=== PATIENT | male | born 1950 | race Two or more races ===

== ENCOUNTER 2016-10-25 19:22 | Emergency (ER) | payer MEDICAID, OTHER ==
[~2016-10-25] VITALS: Ht 167.6 cm; Wt 91.2 kg
[~2016-10-25 19:22] MED LIST: ADVAIR HFA 115-12 GM INH; BACTRIM DS TAB1 EAC1 ORAL; BENAZEPRIL HCL20 MG ORAL; BETAMETHASONE D15 GM TP; CIPROFLOXACIN500 M2 ORAL; CITALOPRAM HBR20 M1 ORAL; COREG3.125 MG ORAL; DITROPAN10 MG ORAL; FLOMAX0.4 MG ORAL; GABAPENTIN300 MG ORAL; OMEPRAZOLE20 M3 ORAL; PROMETHAZINE12.5 M1 ORAL; PROSCAR5 MG ORAL; TENORMIN25 MG ORAL; UNOBMED
[2016-10-25 19:40] VITALS: BP 139/72
[2016-10-25] MEDS ORDERED: Tylenol #3 tab (300mg/30mg) ORAL ONE (20:15)
[2016-10-25] MEDS ORDERED: Meclizine 25mg tab ORAL ONE (20:15)
[2016-10-25] MEDS ORDERED: KENALOG 0.5% CR15 GM APPLIC (20:44)
[2016-10-25] MEDS ORDERED: CORTISPORIN EAR10 ML LEFT EAR (20:44)
[2016-10-25] MEDS ORDERED: VERTICALM25 MG ORAL (20:44)
[2016-10-25] MEDS ORDERED: ACETAMINOPHEN-1 EAC1 ORAL (20:44)
[2016-10-25 21:00] VITALS: BP 139/72
--- NOTE | 2016-10-25 21:31 | Emergency Room Report ---
History of Present Illness General Chief Complaint: Dizziness Source: Patient Present Illness HPI The patient is a 66-year-old male presenting for dizziness and left ear pain after having a ear lavage one week prior. Pain is described as a 7/10 dull ache to the left ear does not radiate. Worse with touch. He denies any discharge or changes in hearing. He denies any fever or chills. He states that he has been feeling dizzy and twisted his ankle yesterday due to to imbalance. This pain is described as a 9/10 dull ache and does not radiate. Worse with walking. He denies any other symptoms including nausea, vomiting, headache, blurred vision, chest pain, shortness of breath, palpitations Allergies: Coded Allergies: No Known Allergies (Unverified , 06/24/13) Patient History Past Medical History: see triage record Pertinent Family History: none Reviewed Nursing Documentation: PMH: Agreed, PSxH: Agreed Nursing Documentation-PMH Past Medical History: No History, Except For Hx Cardiac Problems: Yes - [place] Hx Hypertension: Yes Hx Cancer: No Hx Neurological Problems: No Review of Systems All Other Systems: negative except mentioned in HPI Physical Exam Vital Signs Date Time Temp Pulse Resp B/P Pulse Ox O2 Delivery O2 Flow Rate FiO2 10/25/16 19:34 98.4 86 16 120/74 99 Room Air Sp02 EP Interpretation: reviewed, normal General Appearance: no apparent distress, alert, GCS 15, non-toxic Head: normocephalic, atraumatic Eyes: bilateral eye EOMI, bilateral eye PERRL, bilateral eye normal inspection ENT: normal pharynx, normal voice, uvula midline, other - L EAC tender and erythematous. TM intact. No bulging. Neck: full range of motion, supple/symm/no masses Respiratory: chest non-tender, lungs clear, normal breath sounds, speaking full sentences Cardiovascular #1: regular rate, rhythm, no edema Musculoskeletal: back normal, gait/station normal, normal range of motion, tender - TTP over the L lateral ankle Neurologic: alert, oriented x3, responsive, motor strength/tone normal, sensory intact, speech normal Psychiatric: judgement/insight normal, memory normal, mood/affect normal, no suicidal/homicidal ideation Skin: rash - scaly, shiny rash with erythematous base over the elbows and knees Procedures Splinting Splinting : Consent: Verbal Location: L ankle Pre-Made Type: SAÚL wrap Pre-Proc Neuro Vasc Exam: normal Post-Proc Neuro Vasc Exam: normal Patient Tolerated: Well Complications: None Medical Decision Making PA Attestation Dr. Garcia is my supervising physician. Patient management was discussed with my supervising physician Diagnostic Impression: Primary Impression: Otitis externa of left ear Qualified Codes: H60.502 - Unspecified acute noninfective otitis externa, left ear Additional Impressions: Left ankle sprain Qualified Codes: S93.402A - Sprain of unspecified ligament of left ankle, initial encounter Dizziness Psoriasis ER Course The patient is a 66-year-old male presenting with left ear pain and left ankle pain Differential diagnosis include but not limited to otitis externa, otitis media, Mnire disease, labyrinthitis, among others Ddx considered include but not limited to sprain/strain, fracture, contusion PE: vitals WNL HEENT: Left ear is tender to touch with pressure over tragus. External auditory canal is erythematous and edematous with some white discharge noted. Tympanic membrane is intact. RRR There is tenderness to palpation over the left lateral ankle. No obvious deformity. Full active range of motion. Skin: Warm and dry. There are psoriatic plaques noted on the elbows and knees. X-ray of the left ankle is unremarkable Saúl wrap is placed The patient is given a prescription for meclizine, Cortisporin, Tylenol #3, and triamcinolone. He is to follow up with primary doctor. ER precautions given Other X-Ray Diagnostic Results Other X-Ray Diagnostic Results : X-Ray ordered: L ankle # of Views/Limited Vs Complete: 3 View Indication: Pain EP Interpretation: Yes Interpretation: no dislocation, no soft tissue swelling, no fractures Impression: No acute disease Interpreting ER Provider: Dr. garcia PA Scribe Text I am acting as scribe for my supervising physician. My supervising physician's interpretation of the L ankle xrays are there are no fractures, dislocations or soft tissue swelling. Last Vital Signs Date Time Temp Pulse Resp B/P Pulse Ox O2 Delivery O2 Flow Rate FiO2 10/25/16 19:34 98.4 86 16 120/74 99 Room Air Status: improved Disposition: HOME, SELF-CARE Condition: Improved Scripts Triamcinolone Acet (Triamcinolone Acetonide) 15 Gm Cream..g. 15 GM APPLIC TID, #15 GM Prov: ABRAHAM COLEAYanelis 10/25/16 Neomycin/Polymyxin B Sulf/Hc* (CORTISPORIN EAR SOLUTION*) 10 Ml Solution 4 DROP LEFT EAR QID, #10 ML 0 Refills Prov: ABRAHAM COLE.A. 10/25/16 Meclizine Hcl* (VERTICALM*) 25 Mg Tablet 25 MG ORAL BID, #10 TAB Prov: ABRAHAM COLE.A. 10/25/16 Acetaminophen With Codeine (T#3) (TYLENOL #3 TAB*) Y Tab 1 TAB ORAL Q6HR Y for For Pain, #15 TAB Prov: ABRAHAM COLE.A. 10/25/16 Patient Instructions: Ankle Sprain, Otitis Externa, Dizziness Additional Instructions: I discussed my findings with the patient. All questions and concerns have been answered. Treatment and medication compliance have been addressed. I advised the patient that they need to follow up with PMD in 3-5 days. Return to ED if symptoms worsen, new symptoms arise, or if needed for any reason. Patient verbalized understanding of discharge instructions. ABRAHAM COLE Oct 25, 2016 21:31
--- NOTE | 2016-10-26 11:39 | Diagnostic Imaging Report ---
Indication: Pain Comparison: None Findings: 3 views of the left ankle obtained. Moderate hypertrophic spurring noted at talonavicular joint. Alignment of the ankles normal. There is no fracture. There is an old fracture that is partially visualized involving the shaft of the tibia and fibula near the edge of the film. Impression: No acute injury identified. Osteoarthritis of the talonavicular joint. Old fracture, partially imaged involving the tibia shaft
== END 2016-10-25 21:00 | disposition home or self-care (01) ==
LOC: EMR 19:49
DX: H60.92 Unspecified otitis externa, left ear (principal); S93.402A Sprain of unspecified ligament of left ankle, initial encounter; X58.XXXA Exposure to other specified factors, initial encounter; Y92.89 Other specified places as the place of occurrence of the external cause; R42 Dizziness and giddiness; I10 Essential (primary) hypertension; I25.2 Old myocardial infarction
CPT/HCPCS: 29540; 99284

== ENCOUNTER 2016-11-02 14:23 | Emergency (ER) | payer OTHER ==
[~2016-11-02] VITALS: Ht 165.1 cm; Wt 113.4 kg
[~2016-11-02 14:23] MED LIST changes: +ACETAMINOPHEN-1 EAC1 ORAL; +CORTISPORIN EAR10 ML LEFT EAR; +KENALOG 0.5% CR15 GM APPLIC; +VERTICALM25 MG ORAL
[2016-11-02] MEDS ORDERED: AMOXICILLIN500 MG ORAL (14:50)
[2016-11-02] MEDS ORDERED: CORTISPORIN EAR10 ML LEFT EAR (14:50)
[2016-11-02 14:51] VITALS: BP 149/74
[2016-11-02 14:53] VITALS: BP 149/74
--- NOTE | 2016-11-02 18:08 | Emergency Room Report ---
History of Present Illness General Chief Complaint: Earache Source: Patient, Family Member, Medical Record Present Illness HPI The patient is a 66-year-old male presenting for left ear pain. He was seen in this emergency department 20 prior for a feeling of dizziness and ear pain. He was given prescription for meclizine and Cortisporin. He states he has been using these medications. Dizziness has completely resolved the pain has continued. It is now an 8/10 dull ache and does not radiate. Worse with touch. He denies any changes in hearing. She denies other symptoms including nausea, vomiting, fever, chills or headache Allergies: Coded Allergies: No Known Allergies (Unverified , 06/24/13) Patient History Past Medical History: see triage record Pertinent Family History: none Reviewed Nursing Documentation: PMH: Agreed, PSxH: Agreed Nursing Documentation-PMH Past Medical History: No History, Except For Hx Cardiac Problems: Yes - DC - September 2014 Hx Hypertension: Yes Hx Cancer: No Hx Neurological Problems: No Review of Systems All Other Systems: negative except mentioned in HPI Physical Exam Vital Signs Date Time Temp Pulse Resp B/P Pulse Ox O2 Delivery O2 Flow Rate FiO2 11/02/16 14:27 97.5 86 16 149/74 95 Room Air Sp02 EP Interpretation: reviewed, normal General Appearance: no apparent distress, alert, GCS 15, non-toxic Head: normocephalic, atraumatic Eyes: bilateral eye PERRL, bilateral eye normal inspection ENT: hearing grossly normal, normal pharynx, no angioedema, normal voice, uvula midline, other - L ear TTP over tragus. TM is erythematous and bulging Neurologic: alert, oriented x3, responsive, motor strength/tone normal, sensory intact, speech normal Psychiatric: judgement/insight normal, memory normal, mood/affect normal, no suicidal/homicidal ideation Skin: normal color, no rash, warm/dry, well hydrated Lymphatic: no adenopathy Medical Decision Making PA Attestation Dr. Oglesby is my supervising physician. Patient management was discussed with my supervising physician Diagnostic Impression: Primary Impression: Otitis externa Qualified Codes: H60.502 - Unspecified acute noninfective otitis externa, left ear Additional Impression: Otitis media Qualified Codes: H66.90 - Otitis media, unspecified, unspecified ear ER Course The patient is a 66-year-old male presenting for left ear pain. Differential diagnosis include but not limited to otitis externa, otitis media, mastoiditis, sinusitis, pharyngitis Physical exam:afebrile. No apparent distress. HEENT: Left ear external auditory canal is erythematous and edematous. TTP over tragus. Tympanic membrane is intact. TM is erythematous and bulging. There is no cervical lymphadenopathy. Otherwise exam is unremarkable The patient will be continued to be treated for otitis externa with Cortisporin. He will also be prescribed oral antibiotics for otitis media. ER precautions are given Last Vital Signs Date Time Temp Pulse Resp B/P Pulse Ox O2 Delivery O2 Flow Rate FiO2 11/02/16 14:53 97.5 80 16 149/74 95 Room Air Status: improved Disposition: HOME, SELF-CARE Condition: Improved Scripts Amoxicillin* (AMOXIL*) 500 Mg Capsule 500 MG ORAL Q12HR, #20 CAP Prov: ABRAHAM COLE.AYanelis 11/02/16 Neomycin/Polymyxin B Sulf/Hc* (CORTISPORIN EAR SOLUTION*) 10 Ml Solution 4 DROP LEFT EAR QID, #10 ML 0 Refills Prov: ABRAHAM COLE.Sujit. 11/02/16 Referrals: [facility],REFERRING (PCP) Patient Instructions: Otitis Externa, Otitis Media, Adult Additional Instructions: I discussed my findings with the patient. All questions and concerns have been answered. Treatment and medication compliance have been addressed. I advised the patient that they need to follow up with PMD in 3-5 days. Return to ED if symptoms worsen, new symptoms arise, or if needed for any reason. Patient verbalized understanding of discharge instructions. ABRAHAM COLE Nov 02, 2016 18:08
== END 2016-11-02 14:56 | disposition home or self-care (01) ==
LOC: EMR 14:50
DX: H60.92 Unspecified otitis externa, left ear (principal); H66.92 Otitis media, unspecified, left ear; I10 Essential (primary) hypertension; I25.2 Old myocardial infarction
CPT/HCPCS: 99284